=== PATIENT | male | born 1980 | race African-American/Black ===

== ENCOUNTER 2016-08-12 16:39 | Emergency (ER) | payer OTHER ==
[~2016-08-12] VITALS: Ht 172.7 cm; Wt 72.3 kg
[~2016-08-12 16:39] MED LIST: BACL10TA PO; TRAM50TA4 PO
[2016-08-12 16:56] VITALS: BP 104/68
== END 2016-08-12 21:14 | disposition left against medical advice (07) ==
LOC: EMS 16:41
DX: R51 Headache (principal); R11.2 Nausea with vomiting, unspecified; F17.210 Nicotine dependence, cigarettes, uncomplicated; W20.8XXA Other cause of strike by thrown, projected or falling object, initial encounter; Y93.89 Activity, other specified; Y92.89 Other specified places as the place of occurrence of the external cause; Y99.0 Civilian activity done for income or pay; Z53.21 Procedure and treatment not carried out due to patient leaving prior to being seen by health care provider